=== PATIENT | female | born 2000 | race Two or more races ===

== ENCOUNTER 2025-04-16 15:45 | Emergency (ER) | payer OTHER ==
[~2025-04-16] VITALS: Ht 172.7 cm; Wt 90.7 kg
[2025-04-16 15:50] VITALS: BP 132/78; PULSE 120; RESP 18; TEMP 99.3; O2SAT 96
== END 2025-04-16 18:24 | disposition left against medical advice (07) ==
LOC: ER 15:45
DX: M54.50 Low back pain, unspecified (principal); Z53.21 Procedure and treatment not carried out due to patient leaving prior to being seen by health care provider